=== PATIENT | female | born 1965 | race Caucasian/White ===

== ENCOUNTER 2020-04-25 17:20 | Emergency (ER) | payer MEDICAID, SELFPAY ==
[2020-04-25 17:22] VITALS: BP 104/74; PULSE 117; RESP 22; TEMP 37; O2SAT 93; BMI 17.2
[2020-04-25 18:00] VITALS: BP 142/81; PULSE 111; RESP 18; O2SAT 91
[2020-04-25 18:30] VITALS: BP 138/88; PULSE 109; RESP 17; O2SAT 92
--- NOTE | 2020-04-25 18:30 | CT_ITS ---
PROCEDURE: CT CHEST WO CON CLINICAL INDICATION: pain Chest pain, history non-Hodgkin's lymphoma COMPARISON: CT ABDOMEN PELVIS WO CON from 04/25/2020 TECHNIQUE: Axial images obtained with sagittal and coronal reformats. All CT scans at the facility use one or more dose reduction, viz: automated exposure control, ma/kV adjustment per patient size (including targeted exams where dose is matched to indication, i.e. head), or iterative reconstruction technique. FINDINGS: There is a right IJ MediPort catheter present with the tip in the region the SVC. No mediastinal or hilar mass is evident. There is bilateral bronchial wall thickening with peripheral reticular nodular densities in the upper lobes right greater than left with additional patchy involvement in the posterior lateral right lower lobe posterior lateral left base. More dense areas of consolidation or volume loss is noted in the right upper lobe medially. No effusions are evident. Upper abdominal images are unremarkable. No acute bony finding. IMPRESSION: Bronchial wall thickening with peripheral reticular nodular densities in the upper and lower lobes which may be related to atypical infection versus non infection small airway disease. Neoplasm not completely excluded therefore, follow-up is recommended. There is more dense consolidation in the right upper lobe medially. Dictated by: Lennox Choe MD 04/25/2020 20:35 Electronically signed by Lennox Choe MD in [facility] 04/25/2020 20:35
[2020-04-25 18:31] LABS: Basophils % 0.3 % (0.1-2.0); Eosinophils % 0.5 % (0.1-12.0); Hematocrit 36.2 % (37.0-47.0); Hemoglobin 12.3 g/dL (12.2-16.2); Lymphocytes # 1.2 K/mm3 (0.7-4.5); Lymphocytes % 15.4 % (10-50); Mean Corpuscular HGB Conc 33.9 g/dL (31.8-35.4); Mean Corpuscular Volume 91.5 fl (81-99); Mean Platelet Volume 8.1 fl (7.4-10.4); Monocytes # 0.6 K/mm3 (0.1-1.0); Neutrophils # 5.7 K/mm3 (1.8-7.8); Neutrophils % 75.8 % (37.0-80.0); Platelet Count 299 K/mm3 (142-424); Red Blood Count 3.96 M/mm3 (4.20-5.40); Red Cell Distribution Width 14.9 % (11.5-17.5); White Blood Count 7.5 K/mm3 (4.8-10.8)
--- NOTE | 2020-04-25 18:31 | CT_ITS ---
PROCEDURE: CT ABDOMEN PELVIS WO CON CLINICAL INDICATION: pain Abdominal pain, groin pain, bone cancer non-Hodgkin's lymphoma COMPARISON: No exams were available for comparison TECHNIQUE: Axial images obtained with sagittal and coronal reformats. All CT scans at the facility use one or more dose reduction, viz: automated exposure control, ma/kV adjustment per patient size (including targeted exams where dose is matched to indication, i.e. head), or iterative reconstruction technique. FINDINGS: The liver, spleen, pancreas, right adrenal gland and right kidney have an unremarkable appearance. There has been a prior left nephrectomy. What appears to represent the left adrenal gland is somewhat enlarged at 3 x 1 cm but maintains an adrenal form shape. Correlation with old studies suggested. There is some minimal prominence of the intrahepatic biliary radicles and common bile duct nonspecific and may be better evaluated with ultrasound. Lack of IV and oral contrast somewhat limits the exam. Appendix not clearly delineated. No secondary signs of appendicitis. There is a mild amount of gas in the colon with a few air-fluid levels nonspecific. No evidence of intestinal obstruction or free air. No acute bony anomalies. There is severe calcific plaque involving the distal abdominal aorta and proximal common iliacs with small caliber suggesting aortoiliac stenosis. IMPRESSION: 1. Mild prominence of the biliary tree. This may be better evaluated with ultrasound or MRCP. 2. Mild amount of gas in the colon nonspecific but could be seen with colitis 3. Calcific plaque in the distal aorta and proximal iliac arteries which have a small caliber suggesting some aortoiliac stenosis. CT angiogram may confirm. Dictated by: Lennox Choe MD 04/25/2020 20:45 Electronically signed by Lennox Choe MD in [facility] 04/25/2020 20:45
[2020-04-25 18:35] LABS: Alanine Aminotransferase 43 U/L (12-78); Albumin/Globulin Ratio 1.3 (1.1-1.8); Alkaline Phosphatase 98 U/L (38-126); Anion Gap 13.6 mEq/L (5-15); Aspartate Amino Transferase 84 U/L (14-36); Bilirubin,Total 0.7 mg/dl (0.2-1.3); Blood Urea Nitrogen 27 mg/dl (7-17); Calcium 9.1 mg/dl (8.4-10.2); Carbon Dioxide 23 mmol/L (22.0-30.0); Chloride 103 mmol/L (98-107); Creatinine Clearance Estimated 20 mL/min (50-200); Estimated Glomerular Filt Rate 22 ml/min (>60); GFR (African American) 27 ML/MIN (>60); Globulin 3.2 g/dL (1.3-3.2); Glucose 106 mg/dl (74-100); Potassium 3.6 mmoL/L (3.5-5.1); Sodium 136 mmol/L (136-145); Total Protein,Serum 7.2 g/dl (6.3-8.2)
--- NOTE | 2020-04-25 18:36 | XR_ITS ---
PROCEDURE: XR HAND RT MIN 3V CLINICAL INDICATION: injury Posttraumatic pain COMPARISON: No exams were available for comparison FINDINGS: There is a nondisplaced fracture involving the distal aspect of the 5th metacarpal with mild radial and palmar angulation of the distal fracture fragment. The joint spaces are well-preserved. No significant degenerative/arthritic changes. No erosive changes evident. Other findings:None. IMPRESSION: Boxer's fracture 5th metacarpal Dictated by: Lennox Choe MD 04/25/2020 20:07 Electronically signed by Lennox Choe MD in [facility] 04/25/2020 20:07
--- NOTE | 2020-04-25 18:36 | PC.NURSE ---
pt c/o rt hand pain states helping family with changing tire on car and kimberly fell injuring hand several days ago. pt with pain and bruising rt hand.
--- NOTE | 2020-04-25 18:41 | PC.NURSE ---
attempted to access port, unable to draw blood from line. port removed. IV started lt wrist area
--- NOTE | 2020-04-25 18:48 | [facility].EDGENADL ---
ED Disposition Clinical Impression: Vaginal pain, UTI (urinary tract infection) Disposition: Home, Self-Care Condition on Discharge: Good Instructions: DI for Acute Pain -- Adult Referrals: Jamey Cummings [Primary Care Provider] - - Critical Care Critical Care Time: No Attestation: On 04/25/20, the high probability of a clinically significant, sudden or life threatening deterioration of the following system(s) required my full and direct attention, intervention and personal management. The time I documented below is in addition to time spent performing reported procedures but includes the following listed in this critical care notation. Medical Decision Making - Medical Records Medical records reviewed: Yes: I reviewed the patient's medical records. - Chong Inquiry Pt receiving controlled substance: No Vital Signs: 04/25/20 17:22 04/25/20 18:00 04/25/20 18:30 Temperature 98.6 F Temperature Source Oral Pulse Rate [Left Radial] 117 H 111 H 109 H Respiratory Rate 22 18 17 Blood Pressure [Right Arm] 104/74 L 142/81 H 138/88 Blood Pressure Mean [Right Arm] 84 101 104 Blood Pressure Source [Right Arm] Automatic Cuff Automatic Cuff Blood Pressure Position [Right Arm] Sitting Supine Supine 02 Sat by Pulse Oximetry 93 L 91 L 92 L Oxygen Delivery Method Room Air Room Air Room Air - Lab Data Lab results reviewed: Yes: I reviewed the patient's lab results. Lab Results 04/25/20 18:00: WBC 7.5, RBC 3.96 L, Hgb 12.3, Hct 36.2 L, MCV 91.5, MCH 31.0, MCHC 33.9, RDW 14.9, Plt Count 299, MPV 8.1, Neut % (Auto) 75.8, Lymph % (Auto) 15.4, Glades % (Auto) 8.0, Eos % (Auto) 0.5, Baso % (Auto) 0.3, Neut # (Auto) 5.7, Lymph # (Auto) 1.2, Glades # (Auto) 0.6, Eos # (Auto) 0.0, Baso # (Auto) 0.0 04/25/20 18:00: Sodium 136, Potassium 3.6, Chloride 103, Carbon Dioxide 23, Anion Gap 13.6, BUN 27 H, Creatinine 2.30 H, Estimated Creat Clear 20, Estimated GFR 22 L, Est GFR ( Amer) 27 L, Glucose 106 H, Calcium 9.1, Total Bilirubin 0.7, AST 84 H, ALT 43, Alkaline Phosphatase 98, Total Protein 7.2, Albumin 4.0, Globulin 3.2, Albumin/Globulin Ratio 1.3 04/25/20 18:41: PT 12.7 H, INR 1.25 H Result diagrams: 04/25/20 18:00 04/25/20 18:00 Orders (Tests/Meds): ED MEDICATIONS Generic Name Dose Route Start Last Admin Trade Name Freq PRN Reason Stop Dose Admin Sodium Chloride 1,000 mls @ 999 mls/hr 04/25/20 18:30 04/25/20 18:33 Sod Chlor 0.9% 1000ml Bag IV 04/25/20 19:30 999 mls/hr .Q1H1M OLIVIA Administration Sodium Chloride 10 ml 04/25/20 18:27 04/25/20 18:34 Sodium Chloride 0.9% 10ml Vial IV 05/25/20 18:26 10 ml NEEDED PRN Administration to Dilute Lorazepam inj Discontinued Medications Generic Name Dose Route Start Last Admin Trade Name Freq PRN Reason Stop Dose Admin Azithromycin 1,000 mg 04/25/20 19:37 Zithromax 250mg Tablet PO 04/25/20 19:38 ONCE ONE Protocol Ceftriaxone Sodium 1 gm 04/25/20 19:36 Rocephin 1gm Vial IM 04/25/20 19:37 ONCE ONE Protocol Hydromorphone HCl 1 mg 04/25/20 18:26 04/25/20 18:34 Dilaudid 2mg/Ml Syringe IV 04/25/20 18:27 1 mg ONCE ONE Administration Hydromorphone HCl 0.5 mg 04/25/20 18:47 04/25/20 18:48 Dilaudid 2mg/Ml Syringe IV 04/25/20 18:48 0.5 mg ONCE ONE Administration Lidocaine HCl 0 ml 04/25/20 19:36 Lidocaine 1% 10ml Mdv IM 04/25/20 19:37 ONCE ONE Lorazepam 1 mg 04/25/20 18:27 04/25/20 18:33 Ativan 2mg/Ml Vial IV 04/25/20 18:28 1 mg ONCE ONE Administration Ondansetron HCl 4 mg 04/25/20 18:27 04/25/20 18:33 Zofran 4mg/2ml Vial IV 04/25/20 18:28 4 mg ONCE ONE Administration ORDERS Category Date Time Status CT abdomen pelvis wo con Stat Cat Scan 04/25/20 18:[address] chest wo con Stat Cat Scan 04/25/20 18:30 Taken Hand XR right minimum 3 views [XR hand RT min 3V] Stat Exams 04/25/20 18:36 Taken Urinalysis and Microscopic Stat Lab 04/25/20 18:25 O
--- NOTE | 2020-04-25 18:55 | PC.NURSE ---
pt to ct
--- NOTE | 2020-04-25 18:57 | PC.NURSE ---
pt writhing around on stretcher, crying.
[2020-04-25 19:01] LABS: INR 1.25 (0.9-1.1); Prothrombin Time 12.7 seconds (9.4-11.8)
--- NOTE | 2020-04-25 19:09 | PC.NURSE ---
pt back to room
--- NOTE | 2020-04-25 20:35 | PC.NURSE ---
advised general house worker that patient has effectively been discharged but has no ride. advised taras that patient is too unsteady on her feet to be allowed to wander off at dc; taras placed a person to set with her due to the high volume in the ed and current exterior factors.
[2020-04-25 21:30] VITALS: BP 129/85; PULSE 109; RESP 18; O2SAT 94
--- NOTE | 2020-04-25 21:30 | PC.NURSE ---
patient remains in her room. no changes.
[2020-04-25 22:00] VITALS: BP 125/84; PULSE 94; RESP 18; O2SAT 95
--- NOTE | 2020-04-25 22:30 | PC.NURSE ---
patient remains in room. no changes. staff member at bedside.
[2020-04-25 23:30] VITALS: BP 124/73; PULSE 75; RESP 16; O2SAT 96
--- NOTE | 2020-04-26 00:09 | PC.NURSE ---
pt sleeping at this time.
--- NOTE | 2020-04-26 00:43 | PC.NURSE ---
pt will not keep bp cuff or pulse ox on.
--- NOTE | 2020-04-26 01:12 | PC.NURSE ---
pt states she lives at [address] and [facility] confirmed thats where she lives. pd volunteered to take pt home. pt left with pd at 0110
[2020-04-26 01:16] VITALS: BP 109/63; PULSE 75; RESP 16; TEMP 36.7; O2SAT 98
== END 2020-04-26 01:23 | disposition home or self-care (01) ==
PROVIDERS: Emergency Provider Family Medicine; PCP Pediatrics
DX: R10.2 Pelvic and perineal pain (principal); R11.0 Nausea; C85.88 Other specified types of non-Hodgkin lymphoma, lymph nodes of multiple sites; F10.10 Alcohol abuse, uncomplicated; Z88.5 Allergy status to narcotic agent; M79.641 Pain in right hand
CPT/HCPCS: 36415; 71250; 73130; 74176; 80053; 85025; 85610; 96365; 96367; 96372; 96375; 96376; 99283; 99284; J1642; J2405